=== PATIENT | female | born 1965 | race Asian ===

== ENCOUNTER 2020-10-30 07:00 | Outpatient (RCR) | payer BC | END 2020-11-03 | LOC: M PT 07:00 | PROVIDERS: ATTEND Physician Assistant Surgical | DX: M25.462 Effusion, left knee (principal); M22.42 Chondromalacia patellae, left knee; M94.262 Chondromalacia, left knee; M17.12 Unilateral primary osteoarthritis, left knee ==

== ENCOUNTER 2020-12-02 07:00 | Outpatient (RCR) | payer BC | END 2020-12-03 | LOC: M PT 07:00 | PROVIDERS: ATTEND Physician Assistant Surgical | DX: M22.42 Chondromalacia patellae, left knee (principal); M17.12 Unilateral primary osteoarthritis, left knee ==

== ENCOUNTER 2020-12-10 07:47 | Outpatient (RCR) | payer BC | END 2021-01-03 | LOC: M PT 07:47 | PROVIDERS: ATTEND Physician Assistant Surgical | DX: M22.42 Chondromalacia patellae, left knee (principal) ==

== ENCOUNTER 2022-07-22 14:43 | Emergency (ER) | payer BC ==
[~2022-07-22] VITALS: Ht 160 cm; Wt 87.3 kg
[2022-07-22] MEDS ORDERED: MECLIZINE 25 MG TABLET PO ONE (15:05)
[2022-07-22] MEDS ORDERED: ONDANSETRON 4MG 2ML VIAL IV ONE (15:05)
[2022-07-22] MEDS ORDERED: NS 1,000 ML IV SCH (15:10)
[2022-07-22 16:56] LABS: BASO % 0.4 % (0.0-1.0); EOS # 0.2 10^3/uL (0.0-0.5); HEMATOCRIT 46.2 % (36.0-47.0); HEMOGLOBIN 14.6 g/dl (12.0-15.5); LYMPH # 1.5 10^3/uL (1.5-5.0); LYMPH % 15.1 % (24.0-44.0); MEAN CORPUSCULAR HEMOGLOBIN 27.9 pg (27.0-33.0); MEAN CORPUSCULAR HGB CONC 31.6 g/dl (32.0-36.5); MEAN CORPUSCULAR VOLUME 88.3 fl (80.0-96.0); MONO # 0.6 10^3/uL (0.0-0.8); MONO % 6.1 % (2.0-8.0); NEUTROPHILS # 7.8 10^3/uL (1.5-8.5); PLATELET COUNT, AUTOMATED 264 10^3/uL (150-450); RED BLOOD COUNT 5.23 10^6/uL (4.00-5.40); WHITE BLOOD COUNT 10.2 10^3/uL (4.0-10.0)
[2022-07-22 17:05] LABS: INR 0.97; PROTHROMBIN TIME 13.1 SECONDS (12.5-14.5)
[2022-07-22 17:06] LABS: PARTIAL THROMBOPLASTIN TIME 28.5 SECONDS (24.8-34.2)
[2022-07-22 17:20] LABS: CK-MB VALUE MASS < 1.0 NG/ML (<3.6)
[2022-07-22 17:23] LABS: ALBUMIN 3.6 G/DL (3.2-5.2); ALKALINE PHOSPHATASE 80 U/L (46-116); ALT/SGPT 35 U/L (7.0-40); AST/SGOT 24 U/L (<34); BILIRUBIN,DIRECT 0.2 MG/DL (<0.4); BILIRUBIN,TOTAL 0.5 MG/DL (0.3-1.2); BLOOD UREA NITROGEN 12 MG/DL (9-23); CALCIUM LEVEL 9.5 MG/DL (8.5-10.1); CARBON DIOXIDE LEVEL 27 MMOL/L (20-31); CHLORIDE LEVEL 103 MMOL/L (98-107); CPK CREATINE PHOSPHOKINASE 35 U/L (34-145); CREATININE FOR GFR 0.58 MG/DL (0.55-1.30); GLOMERULAR FILTRATION RATE > 60.0 (>51); GLUCOSE, FASTING 118 MG/DL (60-100); MB/CK RELATIVE INDEX 2.85 (< OR =4); POTASSIUM SERUM 3.9 MMOL/L (3.5-5.1); SODIUM LEVEL 140 MMOL/L (136-145); TOTAL PROTEIN 7.6 G/DL (5.7-8.2)
[2022-07-22 17:24] LABS: FREE T4 1.06 NG/DL (0.89-1.76); THYROID STIMULATING HORMONE 2.949 uIU/ML (0.55-4.78)
[2022-07-22 17:29] VITALS: BP 134/87
[2022-07-22] MEDS ORDERED: MECL1TAB31 PO (18:47)
== END 2022-07-22 19:07 | disposition home or self-care (01) ==
LOC: M ED 14:43
DX: R42 Dizziness and giddiness (principal); J45.909 Unspecified asthma, uncomplicated; Z87.19 Personal history of other diseases of the digestive system; Z88.1 Allergy status to other antibiotic agents
CPT/HCPCS: 70450; 71046; 80048; 80076; 82550; 82553; 83735; 84439; 84443; 84484; 85025; 85610; 85730; 93005; 93041; 94760; 96374; 99285; J2405

== ENCOUNTER → 2022-09-09 | Outpatient (CLI) | payer BC ==
[~2022-09-09] MED LIST: MECL1TAB31 PO
[2022-09-09 14:17] LABS: CHOLESTEROL RISK RATIO 2.54 (<5); HDL CHOLESTEROL 66.3 MG/DL (>40); LDL CHOLESTEROL 88.5 MG/DL (<100); NON-HDL-C 102.7 MG/DL
[2022-09-09 14:24] LABS: THYROID STIMULATING HORMONE 3.525 uIU/ML (0.55-4.78)
== END ==
LOC: M LAB 13:02
DX: Z00.00 Encounter for general adult medical examination without abnormal findings (principal); Z87.828 Personal history of other (healed) physical injury and trauma; R42 Dizziness and giddiness

== ENCOUNTER 2022-09-30 07:00 | Outpatient (RCR) | payer BC | END 2022-10-03 | LOC: M PT 07:00 | DX: R42 Dizziness and giddiness (principal) ==

== ENCOUNTER 2022-10-21 07:00 | Outpatient (RCR) | payer BC | END 2022-11-03 | LOC: M PT 07:00 | DX: R42 Dizziness and giddiness (principal) ==

== ENCOUNTER → 2024-01-06 | Outpatient (REF) ==
[~2024-01-06] MED LIST changes: +MECL-209 PO; -MECL1TAB31 PO
== END ==
LOC: M EMP 09:15
PROVIDERS: ATTEND Family Medicine
DX: Z20.822 Contact with and (suspected) exposure to COVID-19 (principal)

== ENCOUNTER 2025-03-25 14:36 | Emergency (ER) | payer BC ==
[~2025-03-25] VITALS: Ht 160 cm; Wt 95.5 kg
[2025-03-25 15:03] LABS: BASO # 0.1 10^3/uL (0.0-0.2); BASO % 0.6 % (0.0-1.0); EOS # 0.4 10^3/uL (0.0-0.5); EOS % 4.4 % (0.0-3.0); LYMPH # 2.5 10^3/uL (1.5-5.0); LYMPH % 25.6 % (24.0-44.0); MONO # 0.9 10^3/uL (0.0-0.8); MONO % 8.7 % (2.0-8.0); NEUTROPHILS # 6.0 10^3/uL (1.5-8.5); NEUTROPHILS % 60.5 % (36.0-66.0); PLATELET COUNT, AUTOMATED 302 10^3/uL (150-450)
[2025-03-25] MEDS ORDERED: [UNRECOGNIZED DRUG - OTHER] PO (15:04)
[2025-03-25 15:24] LABS: INR 0.91
[2025-03-25 15:46] LABS: ALT/SGPT 30 U/L (7.0-40); AST/SGOT 24 U/L (<34); CALCIUM LEVEL 9.9 MG/DL (8.5-10.1); CARBON DIOXIDE LEVEL 28 MMOL/L (20-31); CHLORIDE LEVEL 105 MMOL/L (98-107); CK-MB VALUE MASS < 1.0 NG/ML (<3.6); CREATININE FOR GFR 0.56 MG/DL (0.55-1.30); GLOMERULAR FILTRATION RATE > 90.0 (>51); POTASSIUM SERUM 4.0 MMOL/L (3.5-5.1); SODIUM LEVEL 145 MMOL/L (136-145)
[2025-03-25 15:51] LABS: CPK CREATINE PHOSPHOKINASE 39 U/L (34-145)
[2025-03-25 16:38] LABS: CK-MB VALUE MASS < 1.0 NG/ML (<3.6); CPK CREATINE PHOSPHOKINASE 53 U/L (34-145)
[2025-03-25] MEDS ORDERED: ISOVUE-370 76% 100 ML VIAL As Ordered ONE (16:50)
[2025-03-25 18:31] LABS: C REACTIVE PROTEIN QUANTITATIV 0.88 MG/DL (<1.0)
[2025-03-25 19:04] LABS: CK-MB VALUE MASS < 1.0 NG/ML (<3.6); CPK CREATINE PHOSPHOKINASE 52 U/L (34-145)
[2025-03-25] MEDS ORDERED: SUCR1TA PO (19:33)
[2025-03-25] MEDS ORDERED: OMEP40CA4 PO (19:33)
[2025-03-25 19:50] VITALS: BP 127/80; TEMP 97.3; O2SAT 96
[2025-03-25] MEDS: SUCRALFATE SUSP 1GM/10ML UD PO ONE (19:51)
== END 2025-03-25 20:03 | disposition home or self-care (01) ==
LOC: M ED 14:36
DX: R07.89 Other chest pain (principal); J45.909 Unspecified asthma, uncomplicated; Z88.1 Allergy status to other antibiotic agents; Z79.899 Other long term (current) drug therapy
CPT/HCPCS: 36415; 71045; 71275; 74177; 80047; 80048; 80076; 82550; 82553; 83690; 83880; 84443; 84484; 85025; 85610; 85652; 85730; 86140; 93005; 93041; 94760; 99285; Q9967

== ENCOUNTER → 2025-05-23 | Outpatient (CLI) | payer BC ==
[~2025-05-23] MED LIST changes: +ISOVUE-370 76% 100 ML VIAL As Ordered ONE; +OMEP40CA4 PO; +SUCR1TA PO; +[UNRECOGNIZED DRUG - OTHER] PO
== END ==
LOC: M RAD 13:29
PROVIDERS: ATTEND Obstetrics & Gynecology Gynecologic Oncology
DX: C54.1 Malignant neoplasm of endometrium (principal); R87.612 Low grade squamous intraepithelial lesion on cytologic smear of cervix (LGSIL)
CPT/HCPCS: 74177; Q9967